=== PATIENT | female | born 1960 | race Caucasian/White ===

== ENCOUNTER 2016-12-19 14:39 | Observation (INO) | payer MEDICARE, MEDICAID ==
[~2016-12-19] VITALS: Ht 167.6 cm; Wt 60.0 kg
[2016-12-19] MEDS ORDERED: ZIPRASIDONE 20 MG INJ IM ONE ×2 (14:40→15:00)
[2016-12-19] MEDS ORDERED: PLEASE ENTER HEIGHT AND WEIGHT MC SCH (15:30)
[2016-12-19 15:46] LABS: HEMOGLOBIN 12.5 g/dL (11.7-16.4)
[2016-12-19 15:54] LABS: BLOOD UREA NITROGEN 20 mg/dL (7-18)
[2016-12-19 15:55] LABS: ACETAMINOPHEN < 2 mcg/mL (10-30)
[2016-12-19 16:43] LABS: DAU SCREEN DISCLAIMER
[2016-12-20] MEDS ORDERED: ZIPRASIDONE 20 MG INJ IM ONE ×2 (05:27→05:30)
[2016-12-20] MEDS ORDERED: LORazepam 1MG TABLET ONE (14:24)
[2016-12-20] MEDS ORDERED: LORazepam 1MG TABLET PO ONE (14:30)
[2016-12-21] MEDS ORDERED: ZIPRASIDONE 20 MG INJ IM ONE ×3 (01:30→18:30)
[2016-12-21] MEDS ORDERED: ZIPRASIDONE 20MG CAPSULE PO STA ×2 (11:48→18:05)
[2016-12-21] MEDS ORDERED: ZIPRASIDONE 20MG CAPSULE ONE ×2 (11:50→18:02)
[2016-12-22] MEDS ORDERED: ZIPRASIDONE 20MG CAPSULE PO STA (11:58)
[2016-12-22] MEDS ORDERED: ZIPRASIDONE 20MG CAPSULE ONE (12:02)
[2016-12-22] MEDS ORDERED: ZIPRASIDONE 20 MG INJ IM ONE ×2 (18:29→18:30)
[2016-12-22] MEDS ORDERED: DIAZEPAM 5 MG/ML, 2ML ONE (18:29)
[2016-12-22] MEDS ORDERED: DIAZEPAM 5 MG/ML, 2ML IM ONE (18:30)
[2016-12-24] MEDS ORDERED: ZIPRASIDONE 20 MG INJ IM ONE ×2 (07:30→07:33)
[2016-12-24] MEDS ORDERED: LORazepam 1MG TABLET ONE (12:26)
[2016-12-24] MEDS ORDERED: LORazepam 1MG TABLET PO ONE (12:30)
[2016-12-24] MEDS ORDERED: hydrOXYzine 25 MG/ML IM PRN (19:30)
[2016-12-24] MEDS ORDERED: OLANZAPINE 5 MG TABLET PO PRN (19:30)
[2016-12-24] MEDS ORDERED: QUETIAPINE 25MG TABLET PO SCH (21:00)
[2016-12-25] MEDS ORDERED: ZIPRASIDONE 20 MG INJ IM ONE ×2 (05:05→05:30)
[2016-12-25 08:57] VITALS: BP 127/74
== END 2016-12-25 08:57 | disposition home or self-care (01) ==
LOC: ED 15:31 → EDIP 15:32 → ED 15:53
PROVIDERS: ADMIT Internal Medicine; ATTEND Internal Medicine
DX: F31.9 Bipolar disorder, unspecified (principal)
CPT/HCPCS: 36415; 80048; 80307; 80329; 82040; 85025; 96372; 99285; G0378; J3486; G0480

== ENCOUNTER 2019-09-19 05:17 | Emergency (ER) | payer SELFPAY ==
[~2019-09-19] VITALS: Ht 157.5 cm; Wt 56.0 kg
[2019-09-19 05:22] VITALS: BP 132/84
== END 2019-09-19 05:52 | disposition home or self-care (01) ==
LOC: ED 05:46
DX: Z01.812 Encounter for preprocedural laboratory examination (principal)
CPT/HCPCS: 36415; 86705; 86706; 86803; 87340; 87389; 99283